=== PATIENT | male | born 1995 | race Caucasian/White ===

== ENCOUNTER 2024-01-27 16:37 | Emergency (ER) | payer MEDICAID ==
[2024-01-27 18:15] VITALS: BP 119/80; PULSE 70
== END 2024-01-27 18:16 ==
LOC: MW.ED 16:37
DX: Z02.89 Encounter for other administrative examinations (principal); R12 Heartburn; M54.9 Dorsalgia, unspecified; Z86.69 Personal history of other diseases of the nervous system and sense organs; K21.9 Gastro-esophageal reflux disease without esophagitis; F17.210 Nicotine dependence, cigarettes, uncomplicated; Z91.011 Allergy to milk products; Z79.899 Other long term (current) drug therapy; Z75.8 Other problems related to medical facilities and other health care
CPT/HCPCS: 99283